=== PATIENT | female | born 1955 | race Caucasian/White ===

== ENCOUNTER 2020-12-01 20:41 | Emergency (ER) | payer OTHER ==
[2020-12-01 22:07] LABS: BASOPHIL 0.6 % (0-2); EOSINOPHIL 4.6 % (0-7); HCT 40.1 % (37.0-47.0); HGB 12.8 g/dl (12.5-16.0); LYMPHOCYTE 25.4 % (15-48); MCH 28.3 pg (25.0-31.0); MCHC 31.9 g/dL (32.0-36.0); MCV 88.5 fL (78.0-100.0); MONOCYTE 8.6 % (0-12); MPV 10.2 fL (6.0-9.5); NEUTROPHIL 60.2 % (41-80); NRBC 0; PLT 336 K/uL (150-400); RBC 4.53 M/uL (4.20-5.40); RDW 14.5 % (11.5-14.0); WBC 12.5 K/uL (4.0-10.5)
[2020-12-01 22:23] LABS: BILIRUBIN NEGATIVE (NEGATIVE); BLOOD NEGATIVE Ery/uL (NEGATIVE); CLARITY CLEAR (CLEAR); COLOR YELLOW (YELLOW); GLUCOSE (U) NORMAL (NORMAL); LEUKOCYTES NEGATIVE Leu/uL (NEGATIVE); NITRITE NEGATIVE (NEGATIVE); PROTEIN NEGATIVE (NEGATIVE); SPECIFIC GRAVITY 1.025 (1.001-1.030); UROBILINOGEN 0.2 mg/dL (0.2-1.0)
[2020-12-01 22:32] LABS: ALBUMIN 3.7 g/dL (3.4-5.0); BILIRUBIN - TOTAL 0.5 mg/dL (0.2-1.0); BUN/CREAT RATIO (CALC) 20.7 RATIO; C-REACTIVE PROTEIN 4.1 mg/dL (<=0.90); CREATININE 0.87 mg/dL (0.51-0.95); GLOBULIN (CALCULATION) 4.3 g/dL; POTASSIUM 3.1 mmol/L (3.5-5.1)
[2020-12-01] MEDS ORDERED: NORCO 5-325 TA1 EACH PO (23:17)
[2020-12-01] MEDS ORDERED: MEDROL 4MG DOSEP4 MG PO (23:17)
== END 2020-12-01 23:59 | disposition home or self-care (01) ==
LOC: FER 20:41
PROVIDERS: Emergency Medicine
DX: M10.9 Gout, unspecified (principal); M19.071 Primary osteoarthritis, right ankle and foot; I48.91 Unspecified atrial fibrillation; I10 Essential (primary) hypertension; Z88.0 Allergy status to penicillin; Z91.041 Radiographic dye allergy status; Z88.7 Allergy status to serum and vaccine; Z91.013 Allergy to seafood; Z91.018 Allergy to other foods; Z79.02 Long term (current) use of antithrombotics/antiplatelets; Z79.899 Other long term (current) drug therapy
CPT/HCPCS: 36415; 73600; 73620; 80053; 81003; 82728; 83615; 83735; 83880; 84145; 84550; 85025; 85379; 86140; J2930